=== PATIENT | female | born 1965 | race Caucasian/White ===

== ENCOUNTER 2016-08-28 15:19 | Inpatient (IN) | payer OTHER ==
[2016-08-28 15:36] VITALS: BMI 32.4
--- NOTE | 2016-08-28 16:03 | PDOC ---
History of Present Illness - General History Source: Patient Exam Limitations: No Limitations <Paige Christianson - Last Filed: 08/28/16 18:57> <Jing Argueta - Last Filed: 08/28/16 19:24> - General Chief Complaint: Chest Pain Stated Complaint: ABNORMAL EKG - History of Present Illness Initial Comments: 08/28/16 16:50 The patient a 51-year-old female, with a significant past medical history of HTN , HLD, DM, CAD (several stents most recent 2011), who presents to the ED with right-sided chest pain. Pt describes her pain as intermittent, pressure-like sensation, nonradiating, exacerbated when lying down or sleeping, and accompanied by left arm tingling. Pt states that her symptoms are similar to her prior [place]. She does report experiencing recent stress over her passing away 3 weeks ago. Pt denies any fever, chills, nausea, vomiting, diarrhea, or abdominal pain. Pt denies any shortness of breath or leg swelling Denies hx of pe or dvt. 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 Poncho Canales (SammyPaige) Past History <Paige Christianson - Last Filed: 08/28/16 18:57> - Past Medical History Cardiac Disorders: Yes Diabetes: Yes Other medical history: HERNIATED DISC, SPINAL STENOSIS - Surgical History Abdominal Surgery: Yes (LT OOPHERECTOMY/SALPINGO) Cardiac Surgery: Yes (DOUBLE BYPASS, 8 STENTS) Cholecystectomy: Yes (2004) - Psycho/Social/Smoking Cessation Hx Anxiety: No Suicidal Ideation: No Smoking Status: No Smoking History: Former smoker Have you smoked in the past 12 months: No Number of Cigarettes Smoked Daily: 20 If you are a former smoker, when did you quit?: 6 MO Information on smoking cessation initiated: No Hx Alcohol Use: No Drug/Substance Use Hx: No Substance Use Type: None <Jing Argueta - Last Filed: 08/28/16 19:24> - Past Medical History Allergies/Adverse Reactions: Allergies Allergy/AdvReac Type Severity Reaction Status Date / Time No Known Allergies Allergy Verified 08/28/16 15:36 Home Medications: Ambulatory Orders Carvedilol Phosphate [Coreg Cr] 40 mg PO DAILY 04/17/11 Ezetimibe/Simvastatin [Vytorin 10-40 mg Tablet] 1 each PO DAILY 04/17/11 Insulin Glargine,Hum.rec.anlog [Lantus] 100 units SQ DAILY 04/17/11 Neurontin 600 mg PO TID 04/17/11 Oxycodone HCl [Oxycontin] 20 mg PO TID 04/17/11 Percocet 10-325 mg Tablet PO QID 04/17/11 Prasugrel Hydrochloride [Effient] 10 mg PO DAILY 04/17/11 Ranolazine [Ranexa] 1,000 mg PO BID 04/17/11 Diazepam [Valium] 5 mg PO HS PRN #10 04/18/11 Review of Systems - Review of Systems Able to Perform ROS?: Yes <Paige Christianson - Last Filed: 08/28/16 18:57> <Jing Argueta - Last Filed: 08/28/16 19:24> - Review of Systems Comments:: 08/28/16 16:50 GENERAL/CONSTITUTIONAL: No fever or chills. No weakness. HEAD, EYES, EARS, NOSE AND THROAT: No change in vision. No ear pain or discharge. No sore throat. CARDIOVASCULAR: No shortness of breath. +chest pain RESPIRATORY: No cough, wheezing, or hemoptysis. SKIN: No rash GASTROINTESTINAL: No nausea, vomiting, diarrhea or constipation. GENITOURINARY: No dysuria, frequency, or change in urination. MUSCULOSKELETAL: No joint or muscle swelling or pain. No neck or back pain. NEUROLOGIC: No headache, vertigo, loss of consciousness. +left arm tingling ENDOCRINE: No increased thirst. No abnormal weight change. HEMATOLOGIC/LYMPHATIC: No anemia, easy bleeding, or history of blood clots. ALLERGIC/IMMUNOLOGIC: No hives or skin allergy. (Paige Christianson) *Physical Exam <Paige Christianson - Last Filed: 08/28/16 18:57> <Jing Argueta - Last Filed: 08/28/16 19:24> - Vital Signs Last Vital Signs Temp Pulse Resp BP Pulse Ox 98.2 F 80 20 148/82 98 08/28/16 15:33 08/28/16 15:33 08/28/16 15:33 08/28/16 15:33 08/28/16 15:33 - Physical Exam Comments: 08/28/16 16:53 GENERAL: Awake, alert, and fully oriented, in no acute distress HEAD: No signs of trauma ENT: Auricles normal inspection, hearing grossly normal, nares patent, oropharynx clear EYES: PERRLA, EOMI, sclera anicteric, conjunctiva clear without exudates. Moist mucosa. NECK: Normal ROM, supple, no lymphadenopathy, JVD, or masses LUNGS: Breath sounds equal, clear to auscultation bilaterally. No wheezes, and no crackles HEART: Regular rate and rhythm, normal S1 and S2, no murmurs, rubs or gallops ABDOMEN: Soft, nontender, normoactive bowel sounds. No guarding, no rebound. No masses EXTREMITIES: Normal range of motion, no edema. No clubbing or cyanosis. No cords, erythema, or tenderness NEUROLOGICAL: Cranial nerves II through XII grossly intact. Normal speech. SKIN: Warm, Dry, normal turgor, no rashes or lesions noted (Paige Christianson) Heart Score/ECG Review <Paige Christianson - Last Filed: 08/28/16 18:57> #1 General ECG Interpretation: Sinus Rhythm, Normal Rate (72), Normal Intervals, No acute ischemic changes Compared to previous ECG there are: Changes noted (compare 06/2010) #2 General ECG Interpretation: Sinus Rhythm, Normal Rate (74), Normal Intervals, No acute ischemic changes Compared to previous ECG there are: No significant change <Jing Argueta - Last Filed: 08/28/16 19:24> #1 08/28/16 16:03 TWI I, AVL, II, AVF, and v2 - V6. no elevations (Jing Argueta) ED Treatment Course - LABORATORY CBC & Chemistry Diagram: 08/28/16 16:10 08/28/16 16:10 <Paige Christianson - Last Filed: 08/28/16 18:57> - LABORATORY CBC & Chemistry Diagram: 08/28/16 16:10 08/28/16 16:10 <Jing Argueta - Last Filed: 08/28/16 19:24> - ADDITIONAL ORDERS Additional order review: Laboratory Results 08/28/16 08/28/16 16:10 16:10 Sodium 138 Potassium 4.0 Chloride 103 Carbon Dioxide 27 Anion Gap 8 BUN 11 Creatinine 0.5 L Creat Clearance w eGFR > 60 Random Glucose 133 H Calcium 9.5 Total Bilirubin 0.5 AST 15 ALT 30 Alkaline Phosphatase 67 Creatine Kinase 112 Troponin I < 0.02 Total Protein 7.3 Albumin 3.9 08/28/16 16:10 RBC 4.53 MCV 90.6 MCHC 33.2 RDW 13.0 MPV 9.3 Neutrophils % 45.3 Lymphocytes % 44.2 H Monocytes % 8.6 Eosinophils % 1.2 Basophils % 0.7 - RADIOLOGY Radiology Studies Ordered: Category Date Time Status CHEST PA & LAT [RAD] Stat Radiology 08/28/16 16:04 Completed - Medications Given in the ED: ED Medications Discontinued Medications Generic Name Dose Route Start Last Admin Trade Name Ollie PRN Reason Stop Dose Admin Aspirin 162 mg 08/28/16 16:04 08/28/16 17:50 Asa - PO 08/28/16 16:05 162 mg ONCE ONE Administration Nitroglycerin 0.4 mg 08/28/16 16:04 08/28/16 17:50 Nitrostat - SL 08/28/16 16:05 0.4 mg ONCE ONE Administration Medical Decision Making <Paige Christianson - Last Filed: 08/28/16 18:57> <Jing Argueta - Last Filed: 08/28/16 19:24> - Medical Decision Making 08/28/16 16:22 Dr. Gracia was paged and notified via phone service. 08/28/16 17:38 Dr. Banks was paged and notified via phone service. 08/28/16 17:40 Dr. Canales was paged and notified via phone service. 08/28/16 18:57 Dr. Garcia was paged and notified via phone service. (Paige Christianson) 08/28/16 15:59 51 yo F with h/o HTN HLD DM CAD (several stents most recent 2011) here with c/o chest pain. pressure like pain, similar to prior [place]. right sided, no radiation. also has left arm tingling. no assoc nausea, or vomiting. no new sob. no leg swelling. has been happening at rest, and at night. usually resolved by nitro, . did have stress of who 3 weeks ago. no other complaints. not plueritic. no h;/o pe or dvt. took asa 81 prior to arrival, no nitro today. on exam pt awake, alert lungs clear. heart regular no murmurs. pulses symmetric. abd soft NT. legs no edema. no calf tenderness. differential: angina, acs, mi infection, gerd, no pe risk factors. plan cxr labs ekg asa nitro. perriley admit to tele. 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 08/28/16 18:48 d/w dr Banks, who covering for ria, stats will see in hospital. no anticoagulation at this point. tele. d/w dr. Canales, told to admit to DR. Garcia. will page zheng, first trop negative. labs unremarkable. cxr neg. ( Jing Argueta) *DC/Admit/Observation/Transfer <Paige Christianson - Last Filed: 08/28/16 18:57> - Discharge Dispostion Admit: Yes <Jing Argueta - Last Filed: 08/28/16 19:24> Diagnosis at time of Disposition: Chest pain - Referrals Referrals: Poncho Canales MD [Primary Care Provider] - - Attestations Scribe Attestion: 08/28/16 16:53 Documentation prepared by Paige Christianson, acting as medical program specialist for Jing Argueta MD. (Paige Christianson)
[2016-08-28] MEDS ORDERED: NITROGLYCERIN SUBLINGUAL 1/150 0.4 MG TAB SL ONE (16:04)
[2016-08-28] MEDS ORDERED: ASPIRIN 81 MG CHEWABLE TABLETS PO ONE ×2 (16:04→20:10)
[2016-08-28 16:59] LABS: BASOPHIL 0.7 % (0-2.0); EOSINOPHIL 1.2 % (0-4.5); MCH 30.1 pg (25.7-33.7); MCHC 33.2 g/dl (32.0-36.0); MEAN CELL VOLUME 90.6 fl (80-96); MEAN PLT VOLUME 9.3 fl (7.5-11.1); NEUTROPHILS 45.3 % (42.8-82.8); PLATELET COUNT 248 K/MM3 (134-434); WHITE BLOOD COUNT 8.3 K/mm3 (4.0-10.0)
[2016-08-28 17:07] LABS: ALBUMIN 3.9 g/dl (3.4-5.0); ANION GAP 8 (8-16); CALCIUM 9.5 mg/dL (8.5-10.1); CO2 27 mmol/L (21-32); GLUCOSE,RANDOM 133 mg/dL (74-106); SGPT/ALT 30 U/L (12-78)
[2016-08-28 17:08] LABS: TROPONIN I < 0.02 ng/ml (0.00-0.05)
[2016-08-28 17:11] LABS: ALK PHOS 67 U/L (45-117); BILIRUBIN,TOTAL 0.5 mg/dL (0.2-1.0); COCKROFT - GAULT 181.6875; CREATININE 0.5 mg/dL (0.55-1.02); SGOT/AST 15 U/L (15-37); TOT PROT 7.3 g/dl (6.4-8.2)
[2016-08-28] MEDS ORDERED: NITROGLYCERIN SUBLINGUAL 1/150 0.4 MG TAB ONE (18:07)
[2016-08-28] MEDS ORDERED: ASPIRIN 81 MG CHEWABLE TABLETS ONE (18:07)
--- NOTE | 2016-08-28 19:02 | CON.CARD ---
Cardiology Consult (text) - Consultation Consultation Note: CC: CP 51 yo with h/o cad s/p cabg (2004, rogel to lad, romeo to lcx), pci's (last cath msh: patent rogel to dlad, patent romeo to om2, isr in rca and lad s/p kimberly to prca, drca, mlad), obesity, recent tobacco, pad s/p river captain r sfa 09/2013 and l sfa 10/2013, htn, hld, dm, possible hx of hep C (prescribed interferon, but it was stopped b/c of adverse pulmonary effects) cervical spinal disease, chronic back pain on opiates who p/w CP/new diffuse TWI. Her suddenly 3 weeks ago. Since then has had occasional chest pressure a few times a week. + relieved by nitro. Similar in quality to prior anginal pain, but less severe. However right sided not left sided, non- exertional (prior anginal discomfort was exertional). States pain occurs mainly at night lying flat, resolves with sitting up. No recurrence with physical activity. Recent ear infection with exudate from ear, epistaxis and congestion. no f/c/s , myalgias, n/v/d, cough. Recent poor po intake 2/2 grief. yesterday with prolonged lightheadedness/dizziness lasting most of the day. No associated palps. + intermittent paresthesia of left arm. + chronic joint pain/back pain. States she may have diagnosis of hep C. Had been treated with interferon in the past, but had to stop treatment due to pulmonary side effects. No sob, pnd, orthopnea, le edema, bleeding. pmhx/pshx: per hpi social hx: former smoker. denies etoh or drug use. + opiates for pain mangement. family hx: No family history of early deaths ros: per hpi. no rashes, visual disturbances. Ambulatory Orders Carvedilol Phosphate [Coreg Cr] 40 mg PO DAILY 04/17/11 Ezetimibe/Simvastatin [Vytorin 10-40 mg Tablet] 1 each PO DAILY 04/17/11 Insulin Glargine,Hum.rec.anlog [Lantus] 100 units SQ DAILY 04/17/11 Neurontin 600 mg PO TID 04/17/11 Oxycodone HCl [Oxycontin] 20 mg PO TID 04/17/11 Percocet 10-325 mg Tablet PO QID 04/17/11 Prasugrel Hydrochloride [Effient] 10 mg PO DAILY 04/17/11 Ranolazine [Ranexa] 1,000 mg PO BID 04/17/11 Diazepam [Valium] 5 mg PO HS PRN #10 04/18/11 Per office notes: benicar 20, coreg 20 qd, effient 10, asa 81, lipitor 20, lovaza, norvasc 2.5, zetia 10. Vital Signs - 24 hr 08/28/16 15:33 Temperature 98.2 F Pulse Rate 80 Respiratory 20 Rate Blood Pressure 148/82 O2 Sat by Pulse 98 Oximetry (%) Intake & Output 08/26/16 08/27/16 08/28/16 08/29/16 07:59 07:59 07:59 07:59 Weight 195 lb nad, calm jvd flat, neck supple ctab, nl effort + bs soft nt nd ext without e/c/c + dp/pt. no carotid bruits aaox3 no jaundice, diaphoresis. diminished dp/pt no carotid bruits CBC, BMP 08/28/16 16:10 08/28/16 16:10 Laboratory Tests 08/28/16 08/28/16 08/28/16 16:10 16:10 16:10 Lymphocytes % 44.2 H Creatine Kinase 112 Troponin I < 0.02 Albumin 3.9 EKG here: unchanged from office ekg. office ecg today 08/28/16: sr, qt prolongation. new deep twis ant/lat, bline STD in V4, V5 CXR: mild perihilar increased lung markings, minimal RLL atelectasis. echo 04/2015: tds, nl lv/rv, no sig valve path 51 yo with h/o cad s/p cabg (2004, rogel to lad, romeo to lcx), pci's (last cath msh: patent rogel to dlad, patent romeo to om2, isr in rca and lad s/p kimberly to prca, drca, mlad), obesity, recent tobacco, pad s/p river captain r sfa 09/2013 and l sfa 10/2013, htn, hld, dm, possible hx of hep C (prescribed interferon, but it was stopped b/c of adverse pulmonary effects) cervical spinal disease, chronic back pain on opiates who p/w CP/new diffuse TWI. Cad s/p cabg/pci: - Had been stable until recently when her and she has been having cp episodes. typical and atypical features (responds to ntg, but positional and non-exertional) - ECG today very abnormal with deep twi's, new from prior. takotsubo cardiomyopathy vs. myocarditis (inc lymphocytes on diff), vs. ischemia. - Con't KAYCEE. Echo. Telemetery monitoring - ESR, CRP. - consideration for stress test vs. cath pending results of testing. - On DAPT as outpatient b/c of extensive cad with hx of ISR, has tolerated well. Con't DAPT, statin. prolonged qtc - avoid qt prolonging drugs ,monitor electrolytes - tele, ischemia eval as mentioned. . - Patient on DAPT, with recent dizziness, arm paresthesias, TWI and prolonged qtc. r/o intracranial pathology/bleed with head CT. - repeat ekg in am. pad: - asx. LE pain thought to be from sciatica and not claudication after outpatient vascular evaluation, pt followed by pain management. - con't anti-platelets, statin. tob use: - Recently quit. Continued smoking cessation discussed. htn: - Controlled, con't outpatient regimen hld: - Cont statin.
[2016-08-28] MEDS ORDERED: OXYCODONE/APAP 5/325MG COMBO TABLET PO PRN (21:37)
[2016-08-28] MEDS: ACETAMINOPHEN 325 MG TABLET (FP) PO PRN (23:24)
[2016-08-28] MEDS: ATORVASTATIN CA 40 MG TABLET (FP) PO SCH (23:24)
[2016-08-28] MEDS: INSULIN DETEMIR 100 UNITS/ML MDV SQ SCH (23:26)
[2016-08-28] MEDS: INSULIN SLIDING SCALE (NOVOLOG) 1 VIAL SQ SCH (23:26)
[2016-08-28] MEDS: oxyCODONE HCL 5 MG TABLET PO PRN (23:27)
[2016-08-29 00:25] LABS: URINE MARIJUANA THC NEGATIVE ng/ml (CUTOFF=50)
[2016-08-29 01:07] LABS: TROPONIN I < 0.02 ng/ml (0.00-0.05)
[2016-08-29 03:20] LABS: THYROID STIMULATING HORMONE 1.74 uIU/ml (0.358-3.74)
[2016-08-29 07:10] LABS: BASOPHIL 0.5 % (0-2.0); EOSINOPHIL 2.4 % (0-4.5); MCH 30.8 pg (25.7-33.7); MCHC 34.3 g/dl (32.0-36.0); MEAN CELL VOLUME 89.9 fl (80-96); MEAN PLT VOLUME 8.9 fl (7.5-11.1); PLATELET COUNT 213 K/MM3 (134-434); RDW 12.8 % (11.6-15.6); WHITE BLOOD COUNT 7.4 K/mm3 (4.0-10.0)
[2016-08-29 07:38] LABS: ANION GAP 10 (8-16); CALCIUM 8.8 mg/dL (8.5-10.1); CHOLESTEROL 134 mg/dL (50-200); CO2 27 mmol/L (21-32); COCKROFT - GAULT 151.4105; CREATININE 0.6 mg/dL (0.55-1.02); GLUCOSE,RANDOM 201 mg/dL (74-106); LDL CHOLESTEROL (ONLY SJRH) 72 mg/dL (5-100)
[2016-08-29] MEDS: INSULIN SLIDING SCALE (NOVOLOG) 1 VIAL SQ SCH ×4 (07:44→21:46)
[2016-08-29] MEDS: oxyCODONE HCL 5 MG TABLET PO PRN ×3 (07:54→20:04)
[2016-08-29] MEDS: ACETAMINOPHEN 325 MG TABLET (FP) PO PRN ×3 (07:54→20:03)
[2016-08-29 08:43] LABS: TROPONIN I < 0.02 ng/ml (0.00-0.05)
--- NOTE | 2016-08-29 10:03 | PN ---
Progress Note (short form) - Note Progress Note: s: no cp sob palps dizzy o: Vital Signs Period Temp Pulse Resp BP Sys/Flores Pulse Ox Last 24 Hr 97 F-98.2 F 62-80 20-20 112-148/53-82 98-99 nad, calm jvd flat, neck supple ctab, nl effort rrr s1s2 no mrg + bs soft nt nd ext without e/c/c aaox3 no jaundice, diaphoresis Current Medications Generic Name Dose Route Start Last Admin Trade Name Freq PRN Reason Stop Dose Admin Acetaminophen 650 mg 08/28/16 23:10 08/29/16 07:54 Tylenol - PO 650 mg Q6H PRN Administration PAIN Amlodipine Besylate 2.5 mg 08/29/16 10:00 Norvasc - PO DAILY [facility] Aspirin 81 mg 08/29/16 10:00 Asa - PO DAILY [facility] Atorvastatin Calcium 40 mg 08/28/16 22:00 08/28/16 23:24 Lipitor - PO 40 mg HS AARTI Administration Carvedilol 20 mg 08/29/16 10:00 Coreg Cr - PO DAILY [facility] Ezetimibe 10 mg 08/29/16 10:00 Zetia - PO DAILY [facility] Insulin Aspart 1 vial 08/28/16 22:00 08/29/16 07:44 Novolog Vial Sliding Scale - SQ 2 units ACHS AARTI Administration Protocol Insulin Detemir 50 units 08/28/16 22:00 08/28/16 23:26 Levemir Vial SQ Not Given HS [facility] Nfqfy-4-Lyko Ethyl Esters 2 gm 08/29/16 10:00 Lovaza - PO BID [facility] Oxycodone HCl 10 mg 08/28/16 23:10 08/29/16 07:54 Roxicodone - PO 10 mg Q6H PRN Administration PAIN Prasugrel 10 mg 08/29/16 10:00 Effient - PO DAILY [facility] Valsartan 160 mg 08/29/16 10:00 Diovan - PO DAILY [facility] CBC, BMP 08/29/16 05:35 08/29/16 05:35 EKG here: unchanged from office ekg. office ecg 08/28/16: sr, qt prolongation. new deep twis ant/lat, bline STD in V4, V5 CXR: mild perihilar increased lung markings, minimal RLL atelectasis. 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 Cad s/p cabg/pci: - Had been stable until recently when her and she has been having cp episodes. typical and atypical features (responds to ntg, but positional and non-exertional) - ECG very abnormal with deep twi's, new from prior. - ce's negx3 - takotsubo cardiomyopathy is suspected - echo pending - planned for cath tomorrow at [facility] - cont tele - On DAPT as outpatient b/c of extensive cad with hx of ISR, has tolerated well. Con't DAPT, statin. pad: - asx. LE pain thought to be from sciatica and not claudication after outpatient vascular evaluation, pt followed by pain management. - con't anti-platelets, statin. tob use: - Recently quit. Continued smoking cessation discussed. htn: - Controlled, con't outpatient regimen hld: - Cont statin.
[2016-08-29] MEDS ORDERED: PT OWN MED DRAWER 7, Y5N ONE (10:24)
[2016-08-29] MEDS: PRASUGREL HCL 10 MG TAB PO SCH (10:28)
[2016-08-29] MEDS: amLODIPine BESYLATE 2.5 MG TABLET (FP) PO SCH (10:29)
[2016-08-29] MEDS: ASPIRIN 81 MG CHEWABLE TABLETS PO SCH (10:29)
[2016-08-29] MEDS: VALSARTAN 160 MG TABLET (UD) PO SCH (10:29)
[2016-08-29] MEDS: CARVEDILOL PHOSPHATE CR 20 MG CAPSULE (FP) PO SCH (10:29)
[2016-08-29] MEDS: OMEGA-3 ACID ETHYL ESTERS (FATTY-ACIDS) 1 GM CAPSULE (FP) PO SCH ×2 (10:29→21:38)
--- NOTE | 2016-08-29 10:29 | HP ---
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 Cardiovascular: Yes: CAD, Hyperlipdemia, Mitral Insufficiency Musculoskeletal: Yes: Other (herniated disks in C4, and L4-L5) Endocrine: Yes: Diabetes Mellitus - Past Surgical History Past Surgical History: Yes: Bypass, Cholecystectomy, (x3), Stent (x11) - Smoking History Smoking history: Former smoker Have you smoked in the past 12 months: No Aproximately how many cigarettes per day: 20 If you are a former smoker, when did you quit?: 6 MO - Alcohol/Substance Use Hx Alcohol Use: No Home Medications - Allergies Allergies/Adverse Reactions: Allergies Allergy/AdvReac Type Severity Reaction Status Date / Time No Known Allergies Allergy Verified 08/28/16 15:36 - Home Medications Home Medications: Ambulatory Orders Amlodipine Besylate [Norvasc -] 2.5 mg PO BID 08/28/16 Aspirin [ASA -] 81 mg PO DAILY 08/28/16 Atorvastatin Ca [Lipitor] 20 mg PO HS 08/28/16 Ezetimibe [Zetia] 10 mg PO DAILY 08/28/16 Insulin Glargine,Hum.rec.anlog [Criselda Solostar] 65 unit SQ DAILY 08/28/16 Insulin Lispro [Humalog] 100 unit SQ AC 08/28/16 Nitroglycerin 0.4 mg SL PRN PRN 08/28/16 Olmesartan Medoxomil [Benicar (Nf)] 20 mg PO DAILY 08/28/16 Orr-3/Dha/Epa/Fish Oil [Fish Oil 1,000 mg Softgel] 1,000 mg PO BID 08/28/16 Oxycodone HCl/Acetaminophen [Percocet 10-325 mg Tablet] 1 each PO TID 08/28/16 Oxycodone Sr [Oxycontin] 20 mg PO BID 08/28/16 Ranolazine [Ranexa -] 1,000 mg PO BID 08/29/16 Review of Systems - Review of Systems Constitutional: reports: No Symptoms Eyes: reports: No Symptoms HENT: reports: No Symptoms Neck: reports: No Symptoms Cardiovascular: reports: Chest Pain, Palpitations, Shortness of Breath Respiratory: reports: SOB Gastrointestinal: reports: No Symptoms Genitourinary: reports: No Symptoms Musculoskeletal: reports: No Symptoms Integumentary: reports: No Symptoms Neurological: reports: Parasthesia Endocrine: reports: No Symptoms Hematology/Lymphatic: reports: No Symptoms Psychiatric: reports: No Symptoms Physical Examination Vital Signs: Vital Signs Temperature 97 F L 08/29/16 06:05 Pulse Rate 63 08/29/16 06:05 Respiratory Rate 20 08/29/16 06:05 Blood Pressure 123/66 08/29/16 06:05 O2 Sat by Pulse Oximetry (%) 99 08/28/16 23:32 Constitutional: Yes: Mild Distress Eyes: Yes: WNL HENT: Yes: WNL Neck: Yes: WNL Cardiovascular: Yes: WNL Respiratory: Yes: WNL Gastrointestinal: Yes: WNL Renal/: Yes: WNL Musculoskeletal: Yes: Muscle Weakness Extremities: Yes: WNL Edema: No Peripheral Pulses WNL: Yes Integumentary: Yes: WNL Wound/Incision: Yes: Clean/Dry Neurological: Yes: WNL ...Motor Strength: WNL Psychiatric: Yes: WNL Labs: CBC, BMP 08/29/16 05:35 08/29/16 05:35 Problem List - Problems (1) Chest pain Code(s): R07.9 - CHEST PAIN, UNSPECIFIED Qualifiers: Chest pain type: chest pain due to myocardial ischemia Ischemic chest pain type: other angina pectoris type Qualified Code(s): I20.8 - Other forms of angina pectoris Assessment/Plan TRANSFERRING TO [facility] FOR CARDIAC CATH TELE CARDIAC WORKUP CARDIOLOGY CONSULT PAIN MEDS ORDERED
[2016-08-29] MEDS: EZETIMIBE 10 MG TABLET (FP) PO SCH (10:30)
--- NOTE | 2016-08-29 10:31 | EKG ---
Test Reason : Blood Pressure : / mmHG Vent. Rate : 074 BPM Atrial Rate : 074 BPM P-R Int : 144 ms QRS Dur : 078 ms QT Int : 446 ms P-R-T Axes : 065 082 193 degrees QTc Int : 495 ms NORMAL SINUS RHYTHM PROLONGED QT ABNORMAL ECG WHEN COMPARED WITH ECG OF 05-JUL-2010 03:14, T WAVE INVERSION NOW EVIDENT IN INFERIOR LEADS T WAVE INVERSION NOW EVIDENT IN ANTEROLATERAL LEADS QT HAS LENGTHENED Confirmed by BARTOLO EVANS MD ([id number]) on 08/29/2016 10:30:57 AM Referred By: Confirmed By:ABRTOLO EVANS MD
--- NOTE | 2016-08-29 10:34 | EKG ---
Test Reason : Blood Pressure : / mmHG Vent. Rate : 072 BPM Atrial Rate : 072 BPM P-R Int : 140 ms QRS Dur : 086 ms QT Int : 442 ms P-R-T Axes : 064 074 175 degrees QTc Int : 483 ms NORMAL SINUS RHYTHM PROLONGED QT ABNORMAL ECG WHEN COMPARED WITH ECG OF 05-JUL-2010 03:14, T WAVE INVERSION NOW EVIDENT IN INFERIOR LEADS T WAVE INVERSION NOW EVIDENT IN ANTEROLATERAL LEADS QT HAS LENGTHENED Confirmed by BARTOLO EVANS MD ([id number]) on 08/29/2016 10:34:16 AM Referred By: Confirmed By:BARTOLO EVANS MD
[2016-08-29] MEDS: oxyCODONE HCL 10 MG SUSTAINED ACTING TABLET PO SCH ×2 (10:56→21:38)
[2016-08-29] MEDS: RANOLAZINE E.R. 1,000 MG TABLET (FP) PO SCH ×2 (10:56→21:38)
[2016-08-29] MEDS: DOCUSATE SODIUM 100 MG CAPSULE (FP) PO PRN (14:39)
--- NOTE | 2016-08-29 15:18 | EKG ---
Test Reason : Blood Pressure : / mmHG Vent. Rate : 065 BPM Atrial Rate : 065 BPM P-R Int : 140 ms QRS Dur : 084 ms QT Int : 476 ms P-R-T Axes : 069 080 181 degrees QTc Int : 495 ms NORMAL SINUS RHYTHM PROLONGED QT ABNORMAL ECG WHEN COMPARED WITH ECG OF 28-AUG-2016 18:51, NO SIGNIFICANT CHANGE WAS FOUND Confirmed by BARTOLO EVANS MD ([id number]) on 08/29/2016 3:18:20 PM Referred By: PRASHANTH RUBIO Confirmed By:BARTOLO EVANS MD
[2016-08-29] MEDS: INSULIN DETEMIR 100 UNITS/ML MDV SQ SCH (21:43)
[2016-08-29] MEDS: ATORVASTATIN CA 40 MG TABLET (FP) PO SCH (21:45)
[2016-08-30] MEDS: oxyCODONE HCL 5 MG TABLET PO PRN ×3 (03:05→13:37)
[2016-08-30] MEDS: ACETAMINOPHEN 325 MG TABLET (FP) PO PRN ×3 (03:05→13:37)
[2016-08-30] MEDS: INSULIN SLIDING SCALE (NOVOLOG) 1 VIAL SQ SCH ×2 (06:35→12:06)
[2016-08-30 07:00] VITALS: PULSE 70
[2016-08-30 09:24] VITALS: BP 118/60; TEMP 98
[2016-08-30] MEDS ORDERED: PT OWN MED DRAWER 7, Y5N ONE (09:33)
[2016-08-30] MEDS: ASPIRIN 81 MG CHEWABLE TABLETS PO SCH (10:12)
[2016-08-30] MEDS: VALSARTAN 160 MG TABLET (UD) PO SCH (10:12)
[2016-08-30] MEDS: RANOLAZINE E.R. 1,000 MG TABLET (FP) PO SCH (10:12)
[2016-08-30] MEDS: DOCUSATE SODIUM 100 MG CAPSULE (FP) PO PRN (10:12)
[2016-08-30] MEDS: oxyCODONE HCL 10 MG SUSTAINED ACTING TABLET PO SCH (10:13)
[2016-08-30] MEDS: OMEGA-3 ACID ETHYL ESTERS (FATTY-ACIDS) 1 GM CAPSULE (FP) PO SCH (10:13)
[2016-08-30] MEDS: amLODIPine BESYLATE 2.5 MG TABLET (FP) PO SCH (10:13)
[2016-08-30] MEDS: EZETIMIBE 10 MG TABLET (FP) PO SCH (10:13)
[2016-08-30] MEDS: PRASUGREL HCL 10 MG TAB PO SCH (10:14)
[2016-08-30] MEDS: CARVEDILOL PHOSPHATE CR 20 MG CAPSULE (FP) PO SCH (10:15)
--- NOTE | 2016-08-30 11:06 | PN ---
Progress Note (short form) - Note Progress Note: s: no cp sob palps dizzy o: Vital Signs Period Temp Pulse Resp BP Sys/Flores Pulse Ox Last 24 Hr 97.6 F-99.2 F 70-84 18-20 93-138/45-77 99 nad, calm jvd flat, neck supple ctab, nl effort rrr s1s2 no mrg + bs soft nt nd ext without e/c/c aaox3 no jaundice, diaphoresis Current Medications Generic Name Dose Route Start Last Admin Trade Name Freq PRN Reason Stop Dose Admin Acetaminophen 650 mg 08/28/16 23:10 08/30/16 09:02 Tylenol - PO 650 mg Q6H PRN Administration PAIN Amlodipine Besylate 2.5 mg 08/29/16 10:00 08/30/16 10:13 Norvasc - PO 2.5 mg DAILY AARTI Administration Aspirin 81 mg 08/29/16 10:00 08/30/16 10:12 Asa - PO 81 mg DAILY AARTI Administration Atorvastatin Calcium 40 mg 08/28/16 22:00 08/29/16 21:45 Lipitor - PO 40 mg HS AARTI Administration Carvedilol 20 mg 08/29/16 10:00 08/30/16 10:15 Coreg Cr - PO 20 mg DAILY AARTI Administration Docusate Sodium 100 mg 08/29/16 14:03 08/30/16 10:12 Colace - PO 100 mg DAILY PRN Administration Ezetimibe 10 mg 08/29/16 10:00 08/30/16 10:13 Zetia - PO 10 mg DAILY AARTI Administration Insulin Aspart 1 vial 08/28/16 22:00 08/30/16 06:35 Novolog Vial Sliding Scale - SQ 6 units ACHS AARTI Administration Protocol Insulin Detemir 50 units 08/28/16 22:00 08/29/16 21:43 Levemir Vial SQ Not Given HS AARTI [id number] Ethyl Esters 2 gm 08/29/16 10:00 08/30/16 10:13 Lovaza - PO 2 gm BID AARTI Administration Oxycodone HCl 10 mg 08/28/16 23:10 08/30/16 09:01 Roxicodone - PO 10 mg Q6H PRN Administration PAIN Oxycodone HCl 20 mg 08/29/16 10:30 08/30/16 10:13 Oxycontin - PO 20 mg BID AARTI Administration Prasugrel 10 mg 08/29/16 10:00 08/30/16 10:14 Effient - PO 10 mg DAILY AARTI Administration Ranolazine 1,000 mg 08/29/16 10:30 08/30/16 10:12 Ranexa - PO 1,000 mg BID AARTI Administration Valsartan 160 mg 08/29/16 10:00 08/30/16 10:12 Diovan - PO 160 mg DAILY AARTI Administration CBC, BMP 08/29/16 05:35 08/29/16 05:35 EKG here: unchanged from office ekg. office ecg 08/28/16: sr, qt prolongation. new deep twis ant/lat, bline STD in V4, V5 CXR: mild perihilar increased lung markings, minimal RLL atelectasis. echo 04/2015: tds, nl lv/rv, no sig valve path echo 08/2016: nl lv/rv, no sig valve path tele: sr a/p: 51 yo with h/o cad s/p cabg (2004, rogel to lad, romeo to lcx), pci's (last cath 07/2013 msh: patent rogel to dlad, patent romeo to om2, isr in rca and lad s/ p kimberly to prca, drca, mlad), obesity, recent tobacco, pad s/p cryptanalyst r sfa 09/2013 and l sfa 10/2013, htn, hld, dm, possible hx of hep C (prescribed interferon, but it was stopped b/c of adverse pulmonary effects) cervical spinal disease, chronic back pain on opiates who p/w CP/new diffuse TWI. Cad s/p cabg/pci: - Had been stable until recently when her and she has been having cp episodes. typical and atypical features (responds to ntg, but positional and non-exertional) - ECG very abnormal with deep twi's, new from prior. - ce's negx3 - takotsubo cardiomyopathy is suspected (echo somewhat TDS but does not have obvious apical ballooning appearance) - planned for cath today at [place] to r/o significant cad as cause of symptoms/ ecg changes - cont tele - On DAPT as outpatient b/c of extensive cad with hx of ISR, has tolerated well. Con't DAPT, statin. pad: - asx. LE pain thought to be from sciatica and not claudication after outpatient vascular evaluation, pt followed by pain management. - con't anti-platelets, statin. tob use: - Recently quit. Continued smoking cessation discussed. htn: - Controlled, con't outpatient regimen hld: - Cont statin.
--- NOTE | 2016-08-30 13:40 | DS ---
Physical Examination Vital Signs: Vital Signs Temperature 98 F 08/30/16 09:23 Pulse Rate 70 08/30/16 09:23 Respiratory Rate 18 08/30/16 09:23 Blood Pressure 118/60 08/30/16 09:23 O2 Sat by Pulse Oximetry (%) 99 08/29/16 21:00 Constitutional: Yes: Mild Distress Eyes: Yes: WNL HENT: Yes: WNL Neck: Yes: WNL Cardiovascular: Yes: WNL Respiratory: Yes: WNL Gastrointestinal: Yes: WNL Musculoskeletal: Yes: WNL Extremities: Yes: WNL Edema: No Peripheral Pulses WNL: Yes Integumentary: Yes: WNL Wound/Incision: Yes: Clean/Dry Neurological: Yes: WNL ...Motor Strength: WNL Psychiatric: Yes: WNL Labs: CBC, BMP 08/29/16 05:35 08/29/16 05:35 Discharge Summary Reason For Visit: CHEST PAIN Current Active Problems Chest pain (Acute) Procedures: Principal: echo Other Procedures: labs/telemetry workup Hospital Course: admitted telemetry, cardiac workup positive needing transfer to [facility] for cardiac cath - Instructions Diet, Activity, Other Instructions: low fat/ada/low sodium Referrals: Poncho Canales MD [Primary Care Provider] - Disposition: TRANSFER ACUTE CARE/OTHER HOSP - Home Medications Comprehensive Discharge Medication List: Ambulatory Orders Amlodipine Besylate [Norvasc -] 2.5 mg PO BID 08/28/16 Aspirin [ASA -] 81 mg PO DAILY 08/28/16 Atorvastatin Ca [Lipitor] 20 mg PO HS 08/28/16 Ezetimibe [Zetia] 10 mg PO DAILY 08/28/16 Insulin Glargine,Hum.rec.anlog [[place] Solostar] 65 unit SQ DAILY 08/28/16 Insulin Lispro [Humalog Kwikpen U-100] 100 unit SQ AC 08/28/16 Nitroglycerin 0.4 mg SL PRN PRN 08/28/16 Olmesartan Medoxomil [Benicar -] 20 mg PO DAILY 08/28/16 Wilton-3/Dha/Epa/Fish Oil [Fish Oil 1,000 mg Softgel] 1,000 mg PO BID 08/28/16 Oxycodone HCl/Acetaminophen [Percocet 10-325 mg Tablet] 1 each PO TID 08/28/16 Oxycodone Sr [Oxycontin] 20 mg PO BID 08/28/16 Ranolazine [Ranexa -] 1,000 mg PO BID 08/29/16 Acetaminophen [Tylenol .Regular Strength -] 650 mg PO Q6H PRN #0 tablet Amlodipine Besylate [Norvasc -] 2.5 mg PO DAILY tablet 08/30/16 Aspirin [ASA -] 81 mg PO DAILY tab.chew 08/30/16 Atorvastatin Ca [Lipitor] 40 mg PO HS tablet 08/30/16 Ezetimibe [Zetia -] 10 mg PO DAILY tablet 08/30/16 Insulin Sliding Scale [Novolog Vial Sliding Scale -] 1 vial SQ ACHS units 08/30 Wilton-3 Acid Ethyl Esters [Lovaza -] 2 gm PO BID cap 08/30/16 Prasugrel Hydrochloride [Effient -] 10 mg PO DAILY tab 08/30/16 Ranolazine [Ranexa -] 1,000 mg PO BID tab 08/30/16
== END 2016-08-30 14:01 | disposition short-term general hospital (02) | DRG 303 ==
LOC: JER 15:19 → JERBED 19:24 → J4W 21:54
PROVIDERS: ADMIT Family Medicine; ATTEND Family Medicine
DX: I25.10 Atherosclerotic heart disease of native coronary artery without angina pectoris (principal); F11.20 Opioid dependence, uncomplicated; J98.11 Atelectasis; R07.89 Other chest pain; I10 Essential (primary) hypertension; E78.5 Hyperlipidemia, unspecified; M48.00 Spinal stenosis, site unspecified; I34.0 Nonrheumatic mitral (valve) insufficiency; I73.89 Other specified peripheral vascular diseases; M54.9 Dorsalgia, unspecified; E11.9 Type 2 diabetes mellitus without complications; M51.26 Other intervertebral disc displacement, lumbar region; M50.21 Other cervical disc displacement, high cervical region; Z90.721 Acquired absence of ovaries, unilateral; Z90.79 Acquired absence of other genital organ(s); Z87.891 Personal history of nicotine dependence; Z95.1 Presence of aortocoronary bypass graft; Z95.5 Presence of coronary angioplasty implant and graft
CPT/HCPCS: 36415; 70450-TC; 71020-TC; 80048; 80053; 80061; 80307; 82550; 83036; 83721; 83735; 84443; 84484; 85025; 85651; 86140; 93005; 93010; 93306-TC; 99284-25